=== PATIENT | male | born 1950 | race Two or more races ===

== ENCOUNTER → 2019-12-11 | Outpatient (CLI) | payer OTHER | END | disposition home or self-care (01) | LOC: OFIC 805 13:00 | PROVIDERS: ATTEND Otolaryngology Otology & Neurotology | DX: J32.4 Chronic pansinusitis (principal); R09.81 Nasal congestion; J31.0 Chronic rhinitis ==

== ENCOUNTER 2020-03-15 14:42 | Outpatient (CLI) | payer OTHER | END 2020-03-15 15:00 | disposition home or self-care (01) | LOC: OFIC 805 14:42 | PROVIDERS: ATTEND Otolaryngology Otology & Neurotology | DX: R09.81 Nasal congestion (principal); J31.0 Chronic rhinitis ==

== ENCOUNTER 2020-06-18 15:28 | Outpatient (CLI) | payer OTHER | END 2020-06-18 16:43 | disposition home or self-care (01) | LOC: OFIC 805 15:28 | PROVIDERS: ATTEND Otolaryngology Otology & Neurotology | DX: J01.40 Acute pansinusitis, unspecified (principal); R09.81 Nasal congestion; J31.0 Chronic rhinitis; J32.2 Chronic ethmoidal sinusitis ==